=== PATIENT | male | born 1935 | race Two or more races ===

== ENCOUNTER 2019-04-05 11:31 | Observation (INO) | payer MEDICARE ==
[~2019-04-05] VITALS: Ht 162.6 cm; Wt 55.0 kg
[~2019-04-05 11:31] MED LIST: AMLO2.5T5 PO; ASPI-496 PO; AZAT50TA9 PO; CHOL10003 PO; FINA5TAB4 PO; LATA2.5D3 EACHEYE; PHEN95TA PO; SIMV20TA3 PO; TAMS-11 PO
[2019-04-05] MEDS ORDERED: LACTATED RINGERS 1,000 ML IV SCH (12:03)
[2019-04-05] MEDS ORDERED: FENTANYL PF 250 MCG/5ML ONE (13:40)
[2019-04-05] MEDS ORDERED: CEFAZOLIN 1,000 MG ONE (13:46)
[2019-04-05] MEDS ORDERED: PROPOFOL 50 ML ONE ×2 (13:53→14:28)
[2019-04-05] MEDS ORDERED: MIDAZOLAM 1 MG/ML, 2ML IV PRN (14:30)
[2019-04-05] MEDS ORDERED: OXYcodone 5 MG/5 ML ORAL.SOL UDC PO PRN (14:30)
[2019-04-05] MEDS ORDERED: DIAZEPAM 5 MG/ML, 2ML IVPush PRN (14:30)
[2019-04-05] MEDS ORDERED: ONDANSETRON ODT 8 MG PO PRN (14:30)
[2019-04-05] MEDS ORDERED: GEMCITABINE HCL BLADIN ONE ×2 (14:30)
[2019-04-05] MEDS ORDERED: METOPROLOL 1 MG/ML, 5ML IV PRN (14:30)
[2019-04-05] MEDS ORDERED: EPHEDRINE 50 MG/ML, 1ML IVPush PRN (14:30)
[2019-04-05] MEDS ORDERED: STERILE WATER BLADIN ONE (14:30)
[2019-04-05] MEDS ORDERED: ACETAMINOPHEN 325 MG TABLET PO PRN ×2 (14:30→17:00)
[2019-04-05] MEDS ORDERED: hydrALAzine 20 MG/ML, 1ML IV PRN (14:30)
[2019-04-05] MEDS ORDERED: ONDANSETRON 2MG/ML, 2ML IV PRN ×2 (14:30→17:00)
[2019-04-05] MEDS ORDERED: EPHEDRINE 50 MG/ML, 1ML IM PRN (14:30)
[2019-04-05] MEDS ORDERED: ACETAMINOPHEN 650 MG/20.3 ML UDC ONE (14:51)
[2019-04-05] MEDS ORDERED: FENTANYL PF 100 MCG/2ML ONE (14:51)
[2019-04-05] MEDS ORDERED: OXYcodone 5 MG/5 ML ORAL.SOL UDC ONE (14:52)
[2019-04-05] MEDS: FENTANYL PF 100 MCG/2ML IV PRN ×4 (14:54→15:12)
[2019-04-05] MEDS ORDERED: HYDROmorphone 2 MG/ML, 1ML ONE (15:07)
[2019-04-05] MEDS ORDERED: OPIUM/BELLADONNA SUPP.RECT 16.2-30 MG ONE (15:09)
[2019-04-05] MEDS: HYDROmorphone 2 MG/ML, 1ML IVPush PRN ×4 (15:11→15:47)
[2019-04-05] MEDS ORDERED: OPIUM/BELLADONNA SUPP.RECT 16.2-30 MG PR PRN (15:30)
[2019-04-05 16:38] VITALS: BP 139/71
[2019-04-05] MEDS ORDERED: HYDROcodone/APAP 5/325 TABLET PO PRN (17:00)
[2019-04-05] MEDS: LACTATED RINGERS 1,000 ML IV SCH (17:40)
[2019-04-05] MEDS ORDERED: SIMVASTATIN 20 MG TABLET PO SCH (21:00)
[2019-04-05] MEDS ORDERED: LATANOPROST OPHTH 0.005%, 2.5ML EACHEYE SCH (21:00)
[2019-04-05 21:37] VITALS: BP 125/50
[2019-04-05] MEDS: PHENAZOPYRIDINE 200 MG TABLET PO SCH (21:44)
[2019-04-05] MEDS: CEFAZOLIN PMX 1GM/50ML 50 ML IVPB SCH (21:44)
[2019-04-06 00:10] VITALS: BP 141/56
[2019-04-06] MEDS: LACTATED RINGERS 1,000 ML IV SCH (01:22)
[2019-04-06 04:05] VITALS: BP 147/78
[2019-04-06] MEDS: CEFAZOLIN PMX 1GM/50ML 50 ML IVPB SCH (06:28)
[2019-04-06 08:18] VITALS: BP 132/72
[2019-04-06] MEDS: PHENAZOPYRIDINE 200 MG TABLET PO SCH (08:43)
[2019-04-06] MEDS ORDERED: TAMSULOSIN 0.4 MG CAP.ER.24H PO SCH (09:00)
[2019-04-06] MEDS ORDERED: AMLODIPINE 2.5 MG TABLET PO SCH (09:00)
[2019-04-06] MEDS ORDERED: CHOLECALCIFEROL 1,000 UNIT TABLET PO SCH (09:00)
[2019-04-06] MEDS ORDERED: FINASTERIDE 5 MG TABLET PO SCH (09:00)
[2019-04-06] MEDS ORDERED: AZATHIOPRINE 50 MG TABLET PO SCH (09:00)
[2019-04-06 11:38] VITALS: BP 142/63
== END 2019-04-06 12:12 | disposition home or self-care (01) ==
LOC: OUT 11:31 → 4NOR 16:23 → OUT 20:27 → DCLOUNGE 04-06 11:51
PROVIDERS: ADMIT Urology; ATTEND Urology
DX: C67.9 Malignant neoplasm of bladder, unspecified (principal); R31.9 Hematuria, unspecified; Z79.899 Other long term (current) drug therapy; Z87.891 Personal history of nicotine dependence
CPT/HCPCS: 52240; 88305; 96365; 96366; G0378; J0690; J1170; J2704; J3010; J7120; J7500; J9201